=== PATIENT | female | born 1985 ===

== ENCOUNTER 2020-01-02 11:08 | Inpatient (IN) | payer SELFPAY ==
[~2020-01-02] VITALS: Ht 167.6 cm; Wt 71.0 kg
[2020-01-02] MEDS ORDERED: OXYTOCIN 30U/ 0.9% NaCL 500ML 500 ML IV ONE (11:21)
[2020-01-02] MEDS ORDERED: OXYTOCIN 30U/ 0.9% NaCL 500ML 500 ML IV PRN (11:21)
[2020-01-02] MEDS ORDERED: ONDANSETRON 2MG/ML, 2ML IVPush PRN (11:30)
[2020-01-02] MEDS ORDERED: SODIUM CITRATE/CITRIC ACID 30 ML UDC PO PRN (11:30)
[2020-01-02] MEDS ORDERED: METOCLOPRAMIDE 5 MG/ML, 2ML IVPush PRN (11:30)
[2020-01-02] MEDS ORDERED: SODIUM CHLORIDE FLUSH 10ML SYR IVF PRN (11:30)
[2020-01-02] MEDS ORDERED: ALUMINUM/MAG/SIMETHICONE 30 ML UDC PO PRN (11:30)
[2020-01-02] MEDS ORDERED: TERBUTALINE 1 MG/ML, 1ML IVPush PRN (11:30)
[2020-01-02] MEDS ORDERED: CALCIUM CARBONATE 500 MG TAB.CHEW PO PRN (11:30)
[2020-01-02] MEDS ORDERED: TERBUTALINE 1 MG/ML, 1ML SQ PRN (11:30)
[2020-01-02] MEDS ORDERED: FENTANYL PF 100 MCG/2ML IVPush PRN (11:30)
[2020-01-02] MEDS ORDERED: LACTATED RINGERS 1,000 ML IV SCH (12:00)
[2020-01-02] MEDS ORDERED: D5%-LACTATED RINGERS 1,000 ML IV SCH (12:00)
[2020-01-02 12:08] LABS: MEAN CORPUSCULAR HEMOGLOBIN 31.7 pg (27.0-34.8); MEAN CORPUSCULAR HGB CONC 34.2 g/dL (32.4-35.8); MEAN PLATELET VOLUME 12.1 fL (7.4-10.4); PLATELET COUNT 186 x10^3/uL (130-400); RED BLOOD COUNT 4.57 x10^6/uL (3.82-5.3); RED CELL DISTRIBUTION WIDTH 13.5 % (9.6-15.2)
[2020-01-02] MEDS ORDERED: OXYTOCIN 30U/ 0.9% NaCL 500ML 500 ML ONE (12:09)
[2020-01-02 12:43] LABS: MD YES
[2020-01-02 13:23] LABS: BANDS%(MANUAL) 2 % (0-7); LYMPH#(MANUAL) 1.41 x10^3/uL (1-3.4); LYMPHS% (MANUAL) 7 % (22-44); METAMYELOCYTES% (MANUAL) 1 % (0-1); MONOS% (MANUAL) 2 % (2-9); SEG#(MANUAL) 17.69 x10^3/uL (1.8-6.8); SEGS% (MANUAL) 88 % (42-75)
[2020-01-02 13:25] LABS: <PLATELET ESTIMATE> ADEQUATE; <RBC MORPHOLOGY> NORMAL; LARGE PLATELETS 1+
[2020-01-02] MEDS ORDERED: MISOPROSTOL 100 MCG TABLET ONE (16:52)
[2020-01-02] MEDS ORDERED: LIDOCAINE 1%, 20ML ONE (16:52)
[2020-01-02] MEDS: OXYTOCIN 30U/ 0.9% NaCL 500ML 500 ML IV SCH (18:13)
[2020-01-02] MEDS ORDERED: SIMETHICONE 80 MG CHEW TAB PO PRN (18:30)
[2020-01-02] MEDS ORDERED: CARBOPROST TROMETHAMINE 250 MCG/ML, 1ML IM PRN (18:30)
[2020-01-02] MEDS ORDERED: OXYcodone/APAP 5/325MG TABLET PO PRN ×2 (18:30)
[2020-01-02] MEDS ORDERED: METHYLERGONOVINE 0.2 MG/ML IM PRN (18:30)
[2020-01-02] MEDS ORDERED: RHOGAM FROM BLOOD BANK 1 NOTE EA IM/IV ONE (18:30)
[2020-01-02] MEDS ORDERED: DIPH,PERTUSS(ACELL),TET VAC/PF NC IM-VACC PRN (18:30)
[2020-01-02] MEDS ORDERED: ACETAMINOPHEN 325 MG TABLET PO PRN (18:30)
[2020-01-02] MEDS ORDERED: MISOPROSTOL 200 MCG TABLET PR PRN (18:30)
[2020-01-02] MEDS ORDERED: IBUPROFEN 600 MG TABLET ONE (18:43)
[2020-01-02] MEDS: IBUPROFEN 600 MG TABLET PO PRN (18:44)
[2020-01-02 19:55] VITALS: BP 123/78
[2020-01-03 01:00] VITALS: BP 120/68
[2020-01-03] MEDS: IBUPROFEN 600 MG TABLET PO PRN ×4 (01:08→21:05)
[2020-01-03 01:13] LABS: MEAN CORPUSCULAR HEMOGLOBIN 31.6 pg (27.0-34.8); MEAN CORPUSCULAR HGB CONC 33.6 g/dL (32.4-35.8); MEAN CORPUSCULAR VOLUME 93.9 fL (80-100); MEAN PLATELET VOLUME 12.6 fL (7.4-10.4); PLATELET COUNT 164 x10^3/uL (130-400); RED BLOOD COUNT 3.66 x10^6/uL (3.82-5.3)
[2020-01-03 01:56] LABS: MD YES
[2020-01-03 01:58] LABS: LYMPH#(MANUAL) 2.06 x10^3/uL (1-3.4); LYMPHS% (MANUAL) 12 % (22-44); METAMYELOCYTES# (MANUAL) 0.34 x10^3/uL (0-0); METAMYELOCYTES% (MANUAL) 2 % (0-1); MONOS#(MANUAL) 0.69 x10^3/uL (0.3-2.7); MONOS% (MANUAL) 4 % (2-9); SEGS% (MANUAL) 82 % (42-75)
[2020-01-03 01:59] LABS: <RBC MORPHOLOGY> NORMAL
[2020-01-03 02:00] LABS: <PLATELET ESTIMATE> ADEQUATE; LARGE PLATELETS 1+
[2020-01-03 04:00] VITALS: BP 115/77
[2020-01-03] MEDS: OXYTOCIN 30U/ 0.9% NaCL 500ML 500 ML IV SCH ×2 (04:13→14:13)
[2020-01-03 08:02] VITALS: BP 104/62
[2020-01-03] MEDS: PRENATAL VIT/IRON/FA 1 EACH TABLET PO SCH (08:35)
[2020-01-03] MEDS: DOCUSATE 100 MG CAPSULE PO PRN ×2 (08:35→21:05)
[2020-01-03 12:45] VITALS: BP 111/74
[2020-01-03 20:30] VITALS: BP 98/58
[2020-01-04] MEDS: OXYTOCIN 30U/ 0.9% NaCL 500ML 500 ML IV SCH ×2 (00:13→10:13)
[2020-01-04] MEDS: IBUPROFEN 600 MG TABLET PO PRN (04:33)
[2020-01-04 07:44] VITALS: BP 106/57
[2020-01-04] MEDS: DOCUSATE 100 MG CAPSULE PO PRN (08:52)
[2020-01-04] MEDS: PRENATAL VIT/IRON/FA 1 EACH TABLET PO SCH (08:52)
== END 2020-01-04 14:47 | disposition home or self-care (01) | DRG 807 ==
LOC: LDOP 11:08 → LDIP 11:24 → 2NW 19:34
PROVIDERS: ADMIT Obstetrics & Gynecology; ATTEND Obstetrics & Gynecology
PROC: 0KQM0ZZ Repair Perineum Muscle, Open Approach (ICD-10-PCS; principal; 2020-01-02)
PROC: 10E0XZZ Delivery of Products of Conception, External Approach (ICD-10-PCS; 2020-01-02)
DX: O70.1 Second degree perineal laceration during delivery (principal); Z37.0 Single live birth
CPT/HCPCS: 36415; 85025; 86592; 86850; 86900; G0378; J2590; J7120

== ENCOUNTER 2021-02-16 08:03 | Emergency (ER) | payer SELFPAY ==
[~2021-02-16] VITALS: Ht 165.1 cm; Wt 58.0 kg
[2021-02-16 08:19] VITALS: BP 116/72
== END 2021-02-16 09:53 | disposition home or self-care (01) ==
LOC: ED 09:44
DX: S92.324A Nondisplaced fracture of second metatarsal bone, right foot, initial encounter for closed fracture (principal); W18.30XA Fall on same level, unspecified, initial encounter; Y93.89 Activity, other specified; Y92.410 Unspecified street and highway as the place of occurrence of the external cause; Y99.8 Other external cause status
CPT/HCPCS: 29515; 99284